=== PATIENT | male | born 1980 | race Caucasian/White ===

== ENCOUNTER 2019-07-09 17:27 | Emergency (ER) | payer MEDICAID, SELFPAY ==
[~2019-07-09] VITALS: Ht 182.9 cm; Wt 90.8 kg
[2019-07-09] MEDS ORDERED: MORPHINE 4 MG/ML 1ML VIAL/SYRINGE (J2270) IV ONE (18:45)
[2019-07-09] MEDS ORDERED: NS 1,000 ML IV ONE (18:45)
[2019-07-09] MEDS ORDERED: CLINDAMYCIN 900 MG in APPROPRIATE DILUENT 1 EA IV ONE (18:45)
[2019-07-09 19:02] LABS: BLOOD UREA NITROGEN 11 MG/DL (7-18); C REACTIVE PROTEIN QUANTITATIV 0.76 MG/DL (0.00-0.30); CALCIUM LEVEL 9.2 MG/DL (8.5-10.1); CARBON DIOXIDE LEVEL 25 MEQ/L (21-32); CHLORIDE LEVEL 108 MEQ/L (98-107); CREATININE FOR GFR 0.71 MG/DL (0.70-1.30); GLOMERULAR FILTRATION RATE > 60.0 (>60); GLUCOSE, FASTING 113 MG/DL (70-100); POTASSIUM SERUM 4.1 MEQ/L (3.5-5.1); SODIUM LEVEL 138 MEQ/L (136-145)
[2019-07-09 19:04] LABS: BASO # 0.1 10^3/uL (0.0-0.2); BASO % 0.4 % (0.0-1.0); EOS # 0.4 10^3/uL (0.0-0.5); EOS % 2.8 % (0.0-3.0); HEMATOCRIT 44.2 % (42.0-52.0); HEMOGLOBIN 15.8 g/dl (13.5-17.5); LYMPH # 2.2 10^3/uL (1.5-5.0); LYMPH % 14.2 % (24.0-44.0); MEAN CORPUSCULAR HGB CONC 35.7 g/dl (32.0-36.5); MEAN CORPUSCULAR VOLUME 86.7 fl (80.0-96.0); MONO # 1.2 10^3/uL (0.0-0.8); MONO % 7.6 % (0.0-5.0); NEUTROPHILS # 11.7 10^3/uL (1.5-8.5); NEUTROPHILS % 74.7 % (36.0-66.0); PLATELET COUNT, AUTOMATED 249 10^3/uL (150-450); WHITE BLOOD COUNT 15.6 10^3/uL (4.0-10.0)
--- NOTE | 2019-07-09 19:58 | REPVR ---
EXAM: US Left Non-Vascular Joint or Other Extremity Structure, Limited Upper Extremity EXAM DATE/TIME: 07/09/2019 7:04 PM CLINICAL HISTORY: 38 years old, male; Pain; Upper arm; Left; Additional info: Left upper arm infection TECHNIQUE: Imaging protocol: Left US Non-Vascular Joint or Other Extremity Structure. Limited exam of the upper extremity. COMPARISON: No relevant prior studies available. FINDINGS: Soft tissues: There is diffuse edema throughout the subcutaneous fat superficial to the distal left triceps muscle. Within this subcutaneous fat, a complex hypoechoic fluid collection is 1.7 x 0.6 x 0.6 cm (images 13 and 20). It is "at the "area of scab". It is 0.4 cm deep to the skin surface. Although its appearance on the grayscale images is suggestive of an abscess or phlegmon, on the color Doppler images, its wall is not hypervascular, as would be expected if it were an abscess. IMPRESSION: There is diffuse edema throughout the subcutaneous fat superficial to the distal left triceps muscle. Within this subcutaneous fat, a complex hypoechoic fluid collection is 1.7 x 0.6 x 0.6 cm (images 13 and 20). Although its appearance on the grayscale images is consistent with an abscess or phlegmon, on the color Doppler images, its wall is not hypervascular, as would be expected if it were an abscess. Electronically signed by: Jaxon Liriano On 07/09/2019 19:57:52 PM
[2019-07-09] MEDS ORDERED: LIDOCAINE 1% MDV 20ML VIAL SC ONE (20:15)
[2019-07-09] MEDS ORDERED: CLEO300C2 PO (20:35)
[2019-07-09 20:37] VITALS: BP 117/81
== END 2019-07-09 20:57 | disposition home or self-care (01) ==
LOC: M ED 17:27
DX: L02.414 Cutaneous abscess of left upper limb (principal); L03.114 Cellulitis of left upper limb; Z88.8 Allergy status to other drugs, medicaments and biological substances
CPT/HCPCS: 10060; 36415; 76882; 80048; 85025; 86140; 87040; 87070; 87077; 87186; 87205; 96365; 96366; 96375; 99284; J2270